=== PATIENT | female | born 1990 | race African-American/Black ===

== ENCOUNTER 2024-03-01 05:27 | Emergency (ER) | payer SELFPAY ==
[2024-03-01] VITALS (9 sets, daily range): BP systolic 94–125; BP diastolic 52–77; PULSE 50–78; RESP 14–20; TEMP 36.7–36.8; O2SAT 95–100
--- NOTE | ~2024-03-01 | US_ITS ---
EXAMINATION: US OB <=14 wk fetus w TV DATE: 03/01/2024 08:34 INDICATION: Pelvic pain. Recent . Beta-hCG is 4025 mIU/mL. TECHNIQUE: Real-time transabdominal and transvaginal pelvic ultrasound was performed. COMPARISON: None. FINDINGS: TRANSABDOMINAL ULTRASOUND: The uterus measures 15.3 x 6.9 x 8.8 cm. TRANSVAGINAL ULTRASOUND: The endometrial complex measures 2.4 cm in thickness. There is no visible in trauterine gestational sac. There is a 5.4 cm intramural fibroid. The right ovary measures 2.6 x 1.9 x 2.7 cm. The left ovary measures 2.9 x 1.4 x 1.4 cm. There is vascular flow in the ovaries. There is no free fluid in the pelvis. IMPRESSION: 1. No visible intrauterine gestational sac, which may be seen in normal early , ectopic preg margaret, or spontaneous or therapeutic . If the patient has had a recent , the thickene d endometrial complex would be suspicious for retained products of conception. 2. Uterine fibroid. Reviewed, dictated and finalized at location A. OMS INSPECTOR IMPRESSION: 1. No visible intrauterine gestational sac, which may be seen in normal early p regnancy, ectopic , or spontaneous or therapeutic . If the pat ient has had a recent , the thickened endometrial complex would be susp icious for retained products of conception. 2. Uterine fibroid.
[2024-03-01 05:43] LABS: Basophils Percent Auto 0.7 % (0.2-1.2); Eosinophils Absolute Auto 0.1 K/mm3 (0-0.3); Hematocrit 30.4 % (37.0-47.0); Immature Granulocyte Absolute 0.02 K/mm3 (0.00-0.031); Immature Granulocyte Percent A 0.4 % (0-0.5); Lymphocytes Absolute Auto 1.14 K/mm3 (0.9-3.2); Mean Corpuscular HGB Conc 32.9 g/dl (32-36); Mean Corpuscular Hemoglobin 27.9 pg (26-34); Mean Corpuscular Volume 84.7 fl (80-100); Mean Platelet Volume 10.6 fl (7.4-10.4); Monocytes Absolute Auto 0.8 K/mm3 (0.1-0.6); Monocytes Percent Auto 14.2 % (2.6-8.5); Neutrophils Absolute Auto 3.4 K/mm3 (1.3-6.7); Neutrophils Percent Auto 61.7 % (45.5-73.1); Platelet Count Result 226 k/mm3 (150-375); Red Blood Count 3.59 M/mm3 (4.2-5.4); Red Cell Distribution Width 17.2 % (11.5-14.5); White Blood Count 5.4 K/mm3 (4.5-10.0)
[2024-03-01] MEDS: MORPHINE SULFATE (*CRX) 4 MG/ML INJ IV PUSH (05:52)
[2024-03-01] MEDS: ONDANSETRON INJ 4 MG/2 ML VIAL IV PUSH ×2 (05:52→09:48)
[2024-03-01 05:58] LABS: Alanine Aminotransferase 20 U/L (6-35); Albumin Level 3.9 g/dL (3.5-5.1); Alkaline Phosphatase 50 U/L (38-126); Anion Gap 4 mmol/L (4-12); Aspartate Amino Transferase 28 U/L (14-36); Bilirubin,Total 0.4 mg/dL (0.2-1.3); Blood Urea Nitrogen 8 mg/dL (7-17); Calcium 8.2 mg/dL (8.4-10.2); Carbon Dioxide 25 mmol/L (22-30); Chloride 104 mmol/L (98-107); Estimated CRCL calculation 118 ml/min; Estimated Glomerular Filt Rate > 60; Glucose 100 mg/dL (65-110); Lipase 26 U/L (23-300); Magnesium 1.7 mg/dL (1.6-2.3); Potassium 4.1 mmol/L (3.4-5.0); Sodium 133 mmol/L (137-145)
--- NOTE | 2024-03-01 06:08 | ED_ITS ---
HPI - Abdominal Pain General Chief Complaint: Abdominal Pain <Chilango Solo MD - Last Filed: 03/01/24 07:05> Stated Complaint: abd pain <Chilango Solo MD - Last Filed: 03/01/24 07:05> Time Seen by Provider: 03/01/24 05:42 <Chilango Solo MD - Last Filed: 03/01/24 07:05> History of Present Illness HPI narrative: Patient is a 33-year-old female who presents to the emergency department this evening complaining of left lower quadrant abdominal pain. Patient states that on Thursday she had an I&D for an at 7 weeks and since then she has been having some pain to her left lower quadrant. This was done at [facility] which patient states is across the street from [facility]. Patient states that yesterday the pain got so severe and she presented to [facility]'s emergency department where they did blood work and a CT of her abdomen and pelvis. CT did not reveal any abnormalities. Patient was administered Toradol and sent home. Patient states that shortly prior to arrival to the emergency department pain has become extremely severe. Patient does appear to be very uncomfortable. Admits that no ultrasound was done to rule out a torsion at daily. Denies any nausea or vomiting. Patient is unable to sit still secondary to pain. <Chilango Solo MD - Last Filed: 03/01/24 07:05> Related Data Allergies/Adverse Reactions: Allergies Allergy/AdvReac Type Severity Reaction Status Date / Time No Known Allergies Allergy Verified 03/01/24 05:52 <Chilango Solo MD - Last Filed: 03/01/24 07:05> Review of Systems Review of Systems: All systems are reviewed and are negative unless stated otherwise in the HPI. <Chilango Solo MD - Last Filed: 03/01/24 07:05> Exam Narrative: General: Alert, awake, afebrile, in moderate distress secondary to pain. HEENT: PERRL, no rhinorrhea, no post nasal drip, oropharynx clear. Neck: Trachea midline, no JVD, no lymphadenopathy. Cardiovascular: Regular rate and rhythm, no murmurs, rubs or gallops, no peripheral edema. Respiratory: Clear to auscultation bilaterally, no tachypnea, no wheezing, no rhonchi, no rubs, no respiratory distress. Abdomen: Soft, nontender, nondistended, no rebound, no guarding, no peritoneal signs. Musculoskeletal: No joint swelling or deformity, normal muscle tone. Skin: No rashes or petechia, no signs of infection. Psychiatric: Alert and oriented, normal behavior and judgment for situation. Neurological: Alert and oriented to person, place, and time. Follows all commands. No focal deficits, speech is clear and fluent. <Chilango Solo MD - Last Filed: 03/01/24 07:05> Course Course Emergency Course: Received patient in sign-out from previous provider at shift change 7:00 a.m.. Patient here to rule out torsional pathology or complications from her recent incision and drainage at [facility]. Patient on my initial assessment stated that she still having some abdominal discomfort but otherwise appears well and has normal reassuring vital signs. She was provided mg Dilaudid and Zofran for symptom control. She had marked below improvement in symptoms after this. Patient was signed out pending the ultrasound to the better delay her symptoms as her laboratory studies were unremarkable and she had a CT scan yest erday that was also unremarkable according to the patient at outside facility and she was discharged home. Obstetric ultrasound report by Radiology shows uterine fibroids, normal sized ovaries both left and right with vascular flow, no evidence of torsion. Some thickened endometrial complex which could be some retained products or secondary to the recent I and D. patient had improvement her pain is expressing desire for discharge at this time which was appropriate and she has an OBGYN she can follow-up with outpatient. No active bleeding and improvement in the pain. Patient will be sent home with a small course of tramadol for residual pain and encouraged to follow-up with her OBGYN on a very short-term basis or return to the emergency department she has any developing fevers, back pain, bleeding, any other concerning features and she expressed understanding. <Rommel Mccabe MD - Last Filed: 03/01/24 12:53> Vital Signs Vital signs: Vital Signs Temperature 36.7 C 03/01/24 05:28 Pulse Rate 70 03/01/24 05:28 Respiratory Rate 18 03/01/24 05:28 Blood Pressure 125/77 03/01/24 05:28 Pulse Oximetry 100 03/01/24 05:28 Oxygen Delivery Room Air 03/01/24 05:28 Temperature 36.8 C 03/01/24 09:04 Pulse Rate 50 L 03/01/24 11:46 Respiratory Rate 20 03/01/24 11:46 Blood Pressure 95/57 L 03/01/24 11:46 Pulse Oximetry 100 03/01/24 11:46 Oxygen Delivery Room Air 03/01/24 05:28 <Chilango Solo MD - Last Filed: 03/01/24 07:05> Vital Signs Temperature 36.7 C 03/01/24 05:28 Pulse Rate 70 03/01/24 05:28 Respiratory Rate 18 03/01/24 05:28 Blood Pressure 125/77 03/01/24 05:28 Pulse Oximetry 100 03/01/24 05:28 Oxygen Delivery Room Air 03/01/24 05:28 Temperature 36.8 C 03/01/24 09:04 Pulse Rate 50 L 03/01/24 11:46 Respiratory Rate 20 03/01/24 11:46 Blood Pressure 95/57 L 03/01/24 11:46 Pulse Oximetry 100 03/01/24 11:46 Oxygen Delivery Room Air 03/01/24 05:28 <Rommel Mccabe MD - Last Filed: 03/01/24 12:53> MDM - Abdominal Pain MDM Narrative Medical decision making narrative: The patient was evaluated by myself in the emergency department. History is obtained from patient who is an independent historian and physical exam was performed. External medical records were reviewed at this time. IV was established and pertinent tests were ordered. Patient was administered 4 mg IV morphine for pain and 4 mg of IV Zofran for nausea. Laboratory results obtained revealing a beta-hCG level of 4024, otherwise no acute process. Urinalysis pending. Patient will be signed off to incoming a.m. ED physician pending pelvic ul trasound to rule out torsion and retained products of conception. <Chilango Solo MD - Last Filed: 03/01/24 07:05> The patient was evaluated by myself in the emergency department. History is obtained from patient who is an independent historian and physical exam was performed. External medical records were reviewed at this time. IV was established and pertinent tests were ordered. Patient was administered 4 mg IV morphine for pain and 4 mg of IV Zofran for nausea. Laboratory results obtained revealing a beta-hCG level of 4024, otherwise no acute process. Urinalysis pending. Patient will be signed off to incoming a.m. ED physician pending pelvic ultrasound to rule out torsion and retained products of conception. <Rommel Mccabe MD - Last Filed: 03/01/24 12:53> Lab Data Result diagrams: 03/01/24 05:35 03/01/24 05:35 <Chilango Solo MD - Last Filed: 03/01/24 07:05> Labs: Lab Results 03/01/24 03/01/24 Range/Units 05:35 12:00 WBC 5.4 (4.5-10.0) K/mm3 RBC 3.59 L (4.2-5.4) M/mm3 Hgb 10.0 L (12.0-15.0) g/dL Hct 30.4 L (37.0-47.0) % MCV 84.7 (80-100) fl MCH 27.9 (26-34) pg MCHC 32.9 (32-36) g/dl RDW 17.2 H (11.5-14.5) % Plt Count 226 (150-375) k/mm3 MPV 10.6 H (7.4-10.4) fl Immature Gran % (Auto) 0.4 (0-0.5) % Neut % (Auto) 61.7 (45.5-73.1) % Lymph % (Auto) 21.0 (18.3-44.2) % [place] % (Auto) 14.2 H (2.6-8.5) % Eos % (Auto) 2.0 (0-4.4) % Baso % (Auto) 0.7 (0.2-1.2) % Lymph # (Auto) 1.14 (0.9-3.2) K/mm3 [place] # (Auto) 0.8 H (0.1-0.6) K/mm3 Eos # (Auto) 0.1 (0-0.3) K/mm3 Baso # (Auto) 0.0 (0.0-0.1) K/mm3 Abs Immat Gran (auto) 0.02 (0.00-0.031) K/mm3 Absolute Neuts (auto) 3.4 (1.3-6.7) K/mm3 Absolute Nucleated RBC 0.000 (0.0-0.012) K/mm3 Nucleated RBC % 0.0 (0.0-0.2) % Sodium 133 L (137-145) mmol/L Potassium 4.1 (3.4-5.0) mmol/L Chloride 104 (98-107) mmol/L Carbon Dioxide 25 (22-30) mmol/L Anion Gap 4 (4-12) mmol/L BUN 8 (7-17) mg/dL Creatinine 0.70 (0.7-1.0) mg/dL Estim Creat Clear Calc 118 ml/min Estimated GFR > 60 (59 - ) Glucose 100 (65-110) mg/dL Calcium 8.2 L (8.4-10.2) mg/dL Magnesium 1.7 (1.6-2.3) mg/dL Total Bilirubin 0.4 (0.2-1.3) mg/dL AST 28 (14-36) U/L ALT 20 (6-35) U/L Alkaline Phosphatase 50 (38-126) U/L Total Protein 7.0 (6.3-8.2) g/dL Albumin 3.9 (3.5-5.1) g/dL Lipase 26 (23-300) U/L Beta HCG, Quant 4024.50 mIU/ML Urine Color Yellow (Yellow) Urine Appearance Cloudy H (Clear) Urine pH 5.5 (5.0-9.0) Ur Specific [place] 1.017 (1.001-1.035) Urine Protein Negative (Negative) mg/dL Urine Glucose (UA) Negative (Negative) mg/dL Urine Ketones Negative (Negative) mg/dL Ur Blood (Man) 3+ H (Negative) Urine Nitrate Negative (Negative) Urine Bilirubin Negative (Negative) Urine Urobilinogen 0.2 (<2.0) mg/dL Leukocyte Esterase Rfl Trace H (Negative) MANDY/UL Urine RBC 6-10 H (0-2) /hpf Urine WBC 0-5 (0-3) /hpf Ur Squamous Epith Cells Occasional (Few) /hpf Urine Bacteria None seen /hpf Urine Casts 0-2 <Nawal A. Elbashir, MD - Last Filed: 03/01/24 07:05> Lab Results 03/01/24 03/01/24 Range/Units 05:35 12:00 WBC 5.4 (4.5-10.0) K/mm3 RBC 3.59 L (4.2-5.4) M/mm3 Hgb 10.0 L (12.0-15.0) g/dL Hct 30.4 L (37.0-47.0) % MCV 84.7 (80-100) fl MCH 27.9 (26-34) pg MCHC 32.9 (32-36) g/dl RDW 17.2 H (11.5-14.5) % Plt Count 226 (150-375) k/mm3 MPV 10.6 H (7.4-10.4) fl Immature Gran % (Auto) 0.4 (0-0.5) % Neut % (Auto) 61.7 (45.5-73.1) % Lymph % (Auto) 21.0 (18.3-44.2) % [place] % (Auto) 14.2 H (2.6-8.5) % Eos % (Auto) 2.0 (0-4.4) % Baso % (Auto) 0.7 (0.2-1.2) % Lymph # (Auto) 1.14 (0.9-3.2) K/mm3 [place] # (Auto) 0.8 H (0.1-0.6) K/mm3 Eos # (Auto) 0.1 (0-0.3) K/mm3 Baso # (Auto) 0.0 (0.0-0.1) K/mm3 Abs Immat Gran (auto) 0.02 (0.00-0.031) K/mm3 Absolute Neuts (auto) 3.4 (1.3-6.7) K/mm3 Absolute Nucleated RBC 0.000 (0.0-0.012) K/mm3 Nucleated RBC % 0.0 (0.0-0.2) % Sodium 133 L (137-145) mmol/L Potassium 4.1 (3.4-5.0) mmol/L Chloride 104 (98-107) mmol/L Carbon Dioxide 25 (22-30) mmol/L Anion Gap 4 (4-12) mmol/L BUN 8 (7-17) mg/dL Creatinine 0.70 (0.7-1.0) mg/dL Estim Creat Clear Calc 118 ml/min Estimated GFR > 60 (59 - ) Glucose 100 (65-110) mg/dL Calcium 8.2 L (8.4-10.2) mg/dL Magnesium 1.7 (1.6-2.3) mg/dL Total Bilirubin 0.4 (0.2-1.3) mg/dL AST 28 (14-36) U/L ALT 20 (6-35) U/L Alkaline Phosphatase 50 (38-126) U/L Total Protein 7.0 (6.3-8.2) g/dL Albumin 3.9 (3.5-5.1) g/dL Lipase 26 (23-300) U/L Beta HCG, Quant 4024.50 mIU/ML Urine Color Yellow (Yellow) Urine Appearance Cloudy H (Clear) Urine pH 5.5 (5.0-9.0) Ur Specific [place] 1.017 (1.001-1.035) Urine Protein Negative (Negative) mg/dL Urine Glucose (UA) Negative (Negative) mg/dL Urine Ketones Negative (Negative) mg/dL Ur Blood (Man) 3+ H (Negative) Urine Nitrate Negative (Negative) Urine Bilirubin Negative (Negative) Urine Urobilinogen 0.2 (<2.0) mg/dL Leukocyte Esterase Rfl Trace H (Negative) MANDY/UL Urine RBC 6-10 H (0-2) /hpf Urine WBC 0-5 (0-3) /hpf Ur Squamous Epith Cells Occasional (Few) /hpf Urine Bacteria None seen /hpf Urine Casts 0-2 <Rommel Mccabe MD - Last Filed: 03/01/24 12:53> Imaging Data Radiologist's impression: ITS Impressions Obstetrics Ultrasound 03/01/24 08:35 IMPRESSION: 1. No visible intrauterine gestational sac, which may be seen in normal early , ectopic , or spontaneous or therapeutic . If the patient has had a recent , the thickened endometrial complex would be suspicious for retained products of conception. 2. Uterine fibroid. <Chilango Solo MD - Last Filed: 03/01/24 07:05> ITS Impressions Obstetrics Ultrasound 03/01/24 08:35 IMPRESSION: 1. No visible intrauterine gestational sac, which may be seen in normal early , ectopic , or spontaneous or therapeutic . If the patient has had a recent , the thickened endometrial complex would be suspicious for retained products of conception. 2. Uterine fibroid. <Rommel Mccabe MD - Last Filed: 03/01/24 12:53> Discharge Plan Discharge Clinical Impression: Pelvic pain, Retained products of conception after induced termination of <Chilango Solo MD - Last Filed: 03/01/24 07:05> Patient Disposition: Home, Self-Care <Chilango Solo MD - Last Filed: 03/01/24 07:05> Condition: Stable <Chilango Solo MD - Last Filed: 03/01/24 07:05> Instructions: Antibiotic Form, Abdominal Pain (ED) <Chilango Solo MD - Last Filed: 03/01/24 07:05> Additional Instructions: Please follow-up with your OBGYN in the next few days. Your recent at clinic is likely causing the pain but the ultrasound does not show anything significant aside from a thickened endometrial complex which could be related to the recent procedure or a small amount of retained products of conception. No other abnormalities under laboratory studies but will send you home with some pain medications for breakthrough pain into you can see her OBGYN. If you start developing any kind of fevers, chills, rigors, vaginal bleeding, back pain or any other concerning features to herself please return to the emergency department for repeat evaluation. <Chilango Solo MD - Last Filed: 03/01/24 07:05> Prescriptions: New tramadol 50 mg tablet 50 mg PO Q6H PRN (Reason: pain) 3 Days Qty: 10 0RF <Chilango Solo MD - Last Filed: 03/01/24 07:05> Follow-up/Referrals: Maximo Leblanc MD [Physician] - 3 Days (Pelvic pain status post elective at [facility]) <Chilango Solo MD - Last Filed: 03/01/24 07:05> Time of Disposition: 12:51 <Chilango Solo MD - Last Filed: 03/01/24 07:05> 12:51 <Rommel Mccabe MD - Last Filed: 03/01/24 12:53>
--- NOTE | 2024-03-01 08:03 | PC.NURSE ---
Patient in US
[2024-03-01] MEDS: HYDROmorphone HCL INJ (*CRX) 1 MG/ML SYR IV PUSH (09:48)
--- NOTE | 2024-03-01 11:56 | PC.NURSE ---
patient ambulated to the restroom
[2024-03-01 12:11] LABS: Add Urine Microscopic? YES; Appearance Urine Cloudy (Clear); Bacteria Urine None Seen /hpf; Bilirubin Urine Negative (Negative); Blood Urine 3+ (Negative); Color Urine Yellow (Yellow); Glucose Urine UA Negative (Negative); Ketones Urine Negative (Negative); Leukocyte Esterase Ur Trace LEU/UL (Negative); Nitrate Urine Negative (Negative); Non Pathogenic Casts 0-2; Protein Urine Negative (Negative); Specific Grav Ur 1.017 (1.001-1.035); Squamous Epithelial Cell Urine Occasional /hpf (Few); Urobilinogen Urine 0.2 mg/dL (<2.0); WBC Urine 0-5 /hpf (0-3); pH Urine 5.5 (5.0-9.0)
== END 2024-03-01 12:55 | disposition home or self-care (01) ==
PROVIDERS: Emergency Provider Emergency Medicine
DX: O07.4 Failed attempted termination of pregnancy without complication (principal); R10.2 Pelvic and perineal pain; D25.9 Leiomyoma of uterus, unspecified
CPT/HCPCS: 36415; 76801; 76817; 80053; 81001; 83690; 83735; 84702; 85025; 96374; 96375; 96376; 99284; J1171; J2270; J2405